=== PATIENT | female | born 1985 | race Caucasian/White ===

== ENCOUNTER 2018-06-04 09:47 | Emergency (ER) | payer OTHER ==
[~2018-06-04] VITALS: Ht 157.5 cm; Wt 72.0 kg
[~2018-06-04 09:47] MED LIST: CINN500C15 PO; GABA-532 PO; GING550C4 PO; GINK120C PO; KRIL500C PO; LISI-642 PO; MULT-190 PO
[2018-06-04 09:50] VITALS: BP 115/74
== END 2018-06-04 10:38 | disposition home or self-care (01) ==
LOC: ER 09:48
DX: Z02.89 Encounter for other administrative examinations (principal); Z88.0 Allergy status to penicillin; Z79.899 Other long term (current) drug therapy
CPT/HCPCS: 99281

== ENCOUNTER → 2019-09-24 | Outpatient (CLI) | payer BC ==
[2019-09-24 12:17] LABS: BASOPHILS # (AUTO) 0.1 X10'3 (0-0.2); BASOPHILS % (AUTO) 0.8 % (0-1); EOSINOPHILS # (AUTO) 0.1 X10'3 (0-0.9); EOSINOPHILS % (AUTO) 0.8 % (0-6); HEMOGLOBIN 12.1 g/dl (12.0-16.0); LYMPHOCYTES # (AUTO) 2.1 X10'3 (1.1-4.8); LYMPHOCYTES % (AUTO) 31.5 % (21-51); MEAN CORPUSCULAR HEMOGLOBIN 26.9 PG (27.0-31.0); MEAN CORPUSCULAR HGB CONC 32.7 g/dL (33.0-36.5); MEAN CORPUSCULAR VOLUME 82.2 FL (78-98); MEAN PLATELET VOLUME 7.5 FL (7.4-10.4); MONOCYTES # (AUTO) 0.7 X10'3 (0-0.9); MONOCYTES % (AUTO) 9.8 % (2-12); NEUTROPHILS # (AUTO) 3.8 X10'3 (1.8-7.7); NEUTROPHILS % (AUTO) 57.1 % (42-75); PLATELET COUNT 313 X10'3 (140-440); RED CELL DISTRIBUTION WIDTH 15.4 % (11.5-14.5); WHITE BLOOD COUNT 6.7 X10'3 (4.5-11.0)
[2019-09-24 12:43] LABS: % IRON SATURATION 19 % (11-46); IRON 88 UG/DL (49-151); TOTAL IRON BINDING CAPACITY 468 UG/DL (259-388)
[2019-09-24 12:45] LABS: CHOL/HDL RATIO 2.5 (0.00-4.99); CHOLESTEROL 215 MG/DL (0-200); FERRITIN 14 NG/ML (8-252); HDL CHOLESTEROL 85 MG/DL (35-60); LDL CHOLESTEROL 117 MG/DL (50-100); TRIGLYCERIDES 54 MG/DL (20-135)
== END | disposition home or self-care (01) ==
LOC: LAB 11:46
PROVIDERS: ATTEND Family Medicine
DX: Z00.00 Encounter for general adult medical examination without abnormal findings (principal)
CPT/HCPCS: 36415; 80061; 82728; 83540; 83550; 84439; 84443; 84480; 85025

== ENCOUNTER 2020-06-20 07:22 | Outpatient (CLI) | payer BC ==
[2020-06-20 08:20] LABS: CLARITY,URINE SLIGHTLY CLOUDY (Clear); COLOR,URINE YELLOW (Yellow); GLUCOSE, URINE NEGATIVE (Neg); KETONES,URINE NEGATIVE (Neg); LEUKOCYTE ESTERASE ,URINE NEGATIVE (Neg); NITRITES, URINE NEGATIVE (Neg); OCCULT BLOOD,URINE TRACE-INTACT (Neg); PROTEIN,URINE NEGATIVE (Neg); UROBILINOGEN,URINE 0.2 E.U/dL (0.2-1.0)
[2020-06-20 08:26] LABS: UA COLLECTION TYPE CLN CATCH MIDSTREAM
[2020-06-20 08:27] LABS: MUCUS STRANDS MODERATE /LPF (Neg); SQUAMOUS EPITHELIAL CELL,UR MODERATE /LPF (FEW)
[2020-06-20 08:28] LABS: BACTERIA,URINE 2+ /HPF (Neg); RBC,URINE 0-2 /HPF (0-2); WBC,URINE 0-4 /HPF (0-4)
[2020-06-20 08:31] LABS: BASOPHILS % (AUTO) 0.8 % (0-1); EOSINOPHILS # (AUTO) 0.4 X10'3 (0-0.9); EOSINOPHILS % (AUTO) 5.5 % (0-6); HEMOGLOBIN 11.5 g/dl (12.0-16.0); LYMPHOCYTES % (AUTO) 31.3 % (21-51); MEAN CORPUSCULAR HEMOGLOBIN 25.6 PG (27.0-31.0); MEAN CORPUSCULAR HGB CONC 31.9 g/dL (33.0-36.5); MEAN CORPUSCULAR VOLUME 80.2 FL (78-98); MONOCYTES # (AUTO) 0.6 X10'3 (0-0.9); MONOCYTES % (AUTO) 9.5 % (2-12); NEUTROPHILS # (AUTO) 3.4 X10'3 (1.8-7.7); NEUTROPHILS % (AUTO) 52.9 % (42-75); PLATELET COUNT 320 X10'3 (140-440); RED BLOOD COUNT 4.48 X10'6 (4.20-5.60); RED CELL DISTRIBUTION WIDTH 16.3 % (11.5-14.5); WHITE BLOOD COUNT 6.4 X10'3 (4.5-11.0)
[2020-06-20 08:43] LABS: ALANINE AMINOTRANSFERASE 15 U/L (12-78); ALBUMIN 2.8 G/DL (3.4-5.0); ALBUMIN/GLOBULIN RATIO 0.6 (1.1-1.5); ALKALINE PHOSPHATASE 53 IU/L (46-116); ANION GAP 11 (8-16); ASPARTATE AMINO TRANSFERASE 9 U/L (10-37); BILIRUBIN,TOTAL 0.2 MG/DL (0.1-1.0); BLOOD UREA NITROGEN 15 MG/DL (7-18); BUN/CREATININE RATIO 21.7 (6.6-38.0); CALCIUM 8.7 MG/DL (8.5-10.1); CHLORIDE 107 MMOL/L (99-107); CHOL/HDL RATIO 3.1 (0.00-4.99); CHOLESTEROL 206 MG/DL (0-200); CREATININE 0.69 MG/DL (0.40-0.90); GLUCOSE 94 MG/DL (70-104); HDL CHOLESTEROL 67 MG/DL (35-60); LDL CHOLESTEROL 132 MG/DL (50-100); POTASSIUM 3.6 MMOL/L (3.5-5.1); SODIUM 142 MMOL/L (135-145); TOTAL CARBON DIOXIDE 23.8 MMOL/L (24-32); TOTAL PROTEIN 7.4 G/DL (6.4-8.2); TRIGLYCERIDES 49 MG/DL (20-135); eGFR > 90 ML/MIN
== END 2020-06-20 23:59 | disposition home or self-care (01) ==
LOC: LAB 07:22
PROVIDERS: ATTEND Family Medicine
DX: Z00.00 Encounter for general adult medical examination without abnormal findings (principal)
CPT/HCPCS: 36415; 80053; 80061; 81001; 82306; 83036; 84439; 84443; 85025

== ENCOUNTER 2020-07-14 18:00 | Emergency (ER) | payer BC ==
[~2020-07-14] VITALS: Ht 157.5 cm; Wt 77.3 kg
[2020-07-14 18:23] VITALS: BP 124/89
[2020-07-14 19:36] LABS: URINE HCG NEGATIVE (NEG)
[2020-07-14 19:37] LABS: CLARITY,URINE SLIGHTLY CLOUDY (Clear); COLOR,URINE PINK (Yellow); GLUCOSE, URINE NEGATIVE (Neg); KETONES,URINE NEGATIVE (Neg); LEUKOCYTE ESTERASE ,URINE TRACE (Neg); NITRITES, URINE NEGATIVE (Neg); OCCULT BLOOD,URINE LARGE (Neg); PH,URINE 6.5 (4.8-8.0); PROTEIN,URINE 30 mg/dl (Neg); UA COLLECTION TYPE CLN CATCH MIDSTREAM; UROBILINOGEN,URINE 0.2 E.U/dL (0.2-1.0)
[2020-07-14 19:55] LABS: BACTERIA,URINE FEW /HPF (Neg); MUCUS STRANDS NONE SEEN /LPF (Neg); RBC,URINE 50-100 /HPF (0-2); SQUAMOUS EPITHELIAL CELL,UR FEW /LPF (FEW); WBC,URINE 0-4 /HPF (0-4)
[2020-07-14] MEDS ORDERED: CEPH-585 PO (20:10)
[2020-07-14] MEDS ORDERED: cephalexin 250mg capsule PO ONE (20:10)
[2020-07-15] MEDS ORDERED: HYDR-3965 PO (08:15)
== END 2020-07-14 20:24 | disposition home or self-care (01) ==
LOC: ER 18:01
DX: N39.0 Urinary tract infection, site not specified (principal); R31.9 Hematuria, unspecified; Z86.69 Personal history of other diseases of the nervous system and sense organs; Z88.0 Allergy status to penicillin; Z79.2 Long term (current) use of antibiotics; Z79.899 Other long term (current) drug therapy
CPT/HCPCS: 81001; 81025; 87088; 99283

== ENCOUNTER 2020-07-15 05:41 | Emergency (ER) | payer BC ==
[~2020-07-15] VITALS: Ht 157.5 cm; Wt 77.2 kg
[~2020-07-15 05:41] MED LIST changes: +CEPH-585 PO
[2020-07-15] MEDS ORDERED: HYDR-3965 PO (08:15)
[2020-07-15 08:29] VITALS: BP 116/76
[2020-07-15 08:30] LABS: CLARITY,URINE CLOUDY (Clear); COLOR,URINE RED (Yellow); GLUCOSE, URINE NEGATIVE (Neg); KETONES,URINE TRACE mg/dl (Neg); LEUKOCYTE ESTERASE ,URINE TRACE (Neg); NITRITES, URINE NEGATIVE (Neg); OCCULT BLOOD,URINE LARGE (Neg); PROTEIN,URINE >=300 mg/dl (Neg)
[2020-07-15 08:39] LABS: UA COLLECTION TYPE VOIDED
[2020-07-15 08:40] LABS: RBC,URINE TNTC /HPF (0-2); SQUAMOUS EPITHELIAL CELL,UR MANY /LPF (FEW)
[2020-07-15 08:41] LABS: CAL OXALATE CRYSTALS 4+ /HPF (NEGATIVE)
[2020-07-15 08:46] LABS: BACTERIA,URINE 2+ /HPF (Neg)
== END 2020-07-15 08:26 | disposition home or self-care (01) ==
LOC: EEVIPCON 05:42 → ER 05:42
DX: R31.9 Hematuria, unspecified (principal); N39.0 Urinary tract infection, site not specified; Z86.69 Personal history of other diseases of the nervous system and sense organs; Z88.0 Allergy status to penicillin; Z79.899 Other long term (current) drug therapy; Z98.890 Other specified postprocedural states
CPT/HCPCS: 74176; 81001; 99284

== ENCOUNTER 2021-03-15 08:54 | Outpatient (CLI) | payer BC ==
[2021-03-15 09:44] LABS: BASOPHILS % (AUTO) 0.5 % (0-1); EOSINOPHILS # (AUTO) 0.1 X10'3 (0-0.9); EOSINOPHILS % (AUTO) 1.4 % (0-6); HEMATOCRIT 33.3 % (35.0-45.0); HEMOGLOBIN 10.7 g/dl (12.0-16.0); LYMPHOCYTES # (AUTO) 1.9 X10'3 (1.1-4.8); LYMPHOCYTES % (AUTO) 30.3 % (21-51); MEAN CORPUSCULAR HEMOGLOBIN 25.1 PG (27.0-31.0); MEAN CORPUSCULAR VOLUME 78.5 FL (78-98); MEAN PLATELET VOLUME 7.8 FL (7.4-10.4); MONOCYTES # (AUTO) 0.6 X10'3 (0-0.9); MONOCYTES % (AUTO) 8.8 % (2-12); NEUTROPHILS # (AUTO) 3.8 X10'3 (1.8-7.7); PLATELET COUNT 355 X10'3 (140-440); RED BLOOD COUNT 4.24 X10'6 (4.20-5.60); RED CELL DISTRIBUTION WIDTH 17.3 % (11.5-14.5); WHITE BLOOD COUNT 6.4 X10'3 (4.5-11.0)
[2021-03-15 10:17] LABS: ALBUMIN 3.5 G/DL (3.4-5.0); ALBUMIN/GLOBULIN RATIO 0.9 (1.1-1.5); ALKALINE PHOSPHATASE 53 IU/L (46-116); ANION GAP 11 (8-16); ASPARTATE AMINO TRANSFERASE 18 U/L (10-37); BILIRUBIN,TOTAL 0.2 MG/DL (0.1-1.0); BLOOD UREA NITROGEN 10 MG/DL (7-18); BUN/CREATININE RATIO 14.5 (6.6-38.0); CALCIUM 8.6 MG/DL (8.5-10.1); CHLORIDE 108 MMOL/L (99-107); CHOL/HDL RATIO 2.8 (0.00-4.99); CHOLESTEROL 208 MG/DL (0-200); CREATININE 0.69 MG/DL (0.40-0.90); GLUCOSE 96 MG/DL (70-104); HDL CHOLESTEROL 73 MG/DL (35-60); LDL CHOLESTEROL 115 MG/DL (50-100); POTASSIUM 3.8 MMOL/L (3.5-5.1); SODIUM 140 MMOL/L (135-145); TOTAL CARBON DIOXIDE 20.8 MMOL/L (24-32); TOTAL PROTEIN 7.3 G/DL (6.4-8.2); TRIGLYCERIDES 43 MG/DL (20-135); eGFR > 90 ML/MIN
[2021-03-15 10:44] LABS: ALANINE AMINOTRANSFERASE 20 U/L (12-78)
[2021-03-15 11:54] LABS: HEMOGLOBIN A1C 6.2 % (4.5-6.2)
[2021-03-15 16:23] LABS: CLARITY,URINE SLIGHTLY CLOUDY (Clear); COLOR,URINE YELLOW (Yellow); GLUCOSE, URINE NEGATIVE (Neg); KETONES,URINE NEGATIVE (Neg); LEUKOCYTE ESTERASE ,URINE NEGATIVE (Neg); NITRITES, URINE NEGATIVE (Neg); OCCULT BLOOD,URINE SMALL (Neg); PH,URINE 5.5 (4.8-8.0); PROTEIN,URINE NEGATIVE (Neg); UROBILINOGEN,URINE 0.2 E.U/dL (0.2-1.0)
[2021-03-15 16:25] LABS: UA COLLECTION TYPE CLN CATCH MIDSTREAM
[2021-03-15 16:28] LABS: SQUAMOUS EPITHELIAL CELL,UR MANY /LPF (FEW)
[2021-03-15 16:31] LABS: BACTERIA,URINE 1+ /HPF (Neg); YEAST FEW /HPF (NEGATIVE)
[2021-03-15 16:32] LABS: RBC,URINE 0-2 /HPF (0-2); WBC,URINE 0-4 /HPF (0-4)
== END 2021-03-15 23:59 | disposition home or self-care (01) ==
LOC: LAB 08:54
PROVIDERS: ATTEND Family Medicine
DX: Z00.00 Encounter for general adult medical examination without abnormal findings (principal)
CPT/HCPCS: 36415; 80053; 80061; 81001; 82306; 83036; 84443; 85025

== ENCOUNTER 2021-03-27 08:04 | Emergency (ER) | payer BC ==
[~2021-03-27] VITALS: Ht 157.5 cm; Wt 77.3 kg
[2021-03-27] MEDS ORDERED: sulfamethoxazole/trimethoprim DS (800/160mg) tablet PO ONE (11:40)
[2021-03-27] MEDS ORDERED: ketorolac trometh inj. 60 MG/2 ML VIAL IM ONE (11:45)
[2021-03-27] MEDS ORDERED: MELO7.5T12 PO (11:47)
[2021-03-27 12:22] VITALS: BP 136/88
== END 2021-03-27 12:23 | disposition home or self-care (01) ==
LOC: EEVIPCON 08:05 → ER 08:05
DX: M77.12 Lateral epicondylitis, left elbow (principal); M25.522 Pain in left elbow; Z86.69 Personal history of other diseases of the nervous system and sense organs; Z88.0 Allergy status to penicillin; Z79.2 Long term (current) use of antibiotics; Z79.899 Other long term (current) drug therapy
CPT/HCPCS: 96372; 99283; J1885

== ENCOUNTER 2021-05-25 15:52 | Outpatient (CLI) | payer BC ==
[~2021-05-25 15:52] MED LIST changes: +MELO7.5T12 PO
[2021-05-25] MEDS ORDERED: GADOTERATE MEGLUMINE 7.5 MMOL/15 ML VIAL IV ONE (17:00)
== END 2021-05-25 23:59 | disposition home or self-care (01) ==
LOC: RAD 15:52
PROVIDERS: ATTEND Nurse Practitioner Family
DX: G40.009 Localization-related (focal) (partial) idiopathic epilepsy and epileptic syndromes with seizures of localized onset, not intractable, without status epilepticus (principal)
CPT/HCPCS: 70553; A9575

== ENCOUNTER 2021-06-06 15:56 | Outpatient (CLI) | payer BC | END 2021-06-06 23:59 | disposition home or self-care (01) | LOC: RAD 15:56 | PROVIDERS: ATTEND Nurse Practitioner Family | DX: R94.01 Abnormal electroencephalogram [EEG] (principal); G40.009 Localization-related (focal) (partial) idiopathic epilepsy and epileptic syndromes with seizures of localized onset, not intractable, without status epilepticus | CPT/HCPCS: 95816 ==

== ENCOUNTER 2021-09-05 11:23 | Emergency (ER) | payer BC ==
[~2021-09-05] VITALS: Ht 157.5 cm; Wt 86.4 kg
[~2021-09-05 11:23] MED LIST changes: -CEPH-585 PO
[2021-09-05 12:39] VITALS: BP 120/72
[2021-09-05] MEDS ORDERED: ibuprofen tablet 400 MG TABLET PO ONE (15:30)
== END 2021-09-05 15:46 | disposition home or self-care (01) ==
LOC: ER 11:23 → EEVIPCON 11:23 → ER 15:46
DX: M77.12 Lateral epicondylitis, left elbow (principal); Z88.0 Allergy status to penicillin; Z79.899 Other long term (current) drug therapy; X58.XXXA Exposure to other specified factors, initial encounter; Y93.89 Activity, other specified; Y92.89 Other specified places as the place of occurrence of the external cause; Y99.8 Other external cause status
CPT/HCPCS: 99282

== ENCOUNTER 2022-01-01 12:41 | Outpatient (CLI) | payer BC ==
[2022-01-01] MEDS ORDERED: GADOTERATE MEGLUMINE 7.5 MMOL/15 ML VIAL IV ONE (14:13)
== END 2022-01-01 23:59 | disposition home or self-care (01) ==
LOC: RAD 12:41
PROVIDERS: ATTEND Nurse Practitioner Family
DX: R90.82 White matter disease, unspecified (principal)
CPT/HCPCS: 72156; 72157; A9575

== ENCOUNTER 2022-01-23 08:55 | Day surgery (SDC) | payer BC ==
[~2022-01-23] VITALS: Ht 157.5 cm; Wt 90.2 kg
[2022-01-23 09:20] VITALS: BP 107/74
[2022-01-23] MEDS ORDERED: ESZO3TAB44 PO (09:42)
[2022-01-23] MEDS ORDERED: SERT-434 PO (09:42)
[2022-01-23] MEDS ORDERED: SUMA100T16 PO (09:42)
[2022-01-23] MEDS ORDERED: ZONI100C87 PO (09:42)
[2022-01-23] MEDS ORDERED: GABA300C PO (09:42)
[2022-01-23] MEDS ORDERED: fentaNYL/PF 50MCG/1 ML 2ML syringe ONE (10:30)
[2022-01-23 10:53] VITALS: BP 102/66
[2022-01-23 11:15] VITALS: BP 114/71
[2022-01-23 11:45] VITALS: BP 98/67
[2022-01-23 12:00] VITALS: BP 108/65
[2022-01-23 12:20] LABS: APPEARANCE,CSF CLEAR; CSF SUPERNATANT COLOR COLORLESS; CSF VOLUME 14.4 ML; TUBE# COUNTED 4
[2022-01-23 12:22] LABS: CSF RBC 80 /CU MM (0); CSF WBC CT 14 /CU MM (0-5); LYMPHOCYTES,CSF 96 % (40-80); MONOCYTES,CSF 4 % (15-45)
[2022-01-23 12:30] VITALS: BP 122/68
[2022-01-23 15:08] LABS: GLUCOSE,CSF 66 MG/DL (40-75)
[2022-01-23 15:09] LABS: TOTAL PROTEIN,CSF 40 MG/DL (15-45)
[2022-01-24 16:50] LABS: IMMUNOGLOBULIN G, QN, SERUM 926 mg/dL (586-1602)
[2022-01-28 17:36] LABS: VDRL, CSF Non Reactive (Non Rea:<1:1)
== END 2022-01-23 13:05 | disposition home or self-care (01) ==
LOC: SSTAY O 08:55
PROVIDERS: ATTEND Nurse Practitioner Family
DX: R90.82 White matter disease, unspecified (principal); Z88.0 Allergy status to penicillin; Z79.899 Other long term (current) drug therapy
CPT/HCPCS: 36415; 62328; 82040; 82042; 82164; 82784; 83873; 83916; 86592; 86617; 89051; J3010; J7030; 77003

== ENCOUNTER 2022-03-26 15:40 | Outpatient (CLI) | payer BC ==
[~2022-03-26 15:40] MED LIST changes: -CINN500C15 PO; +ESZO3TAB44 PO; -GABA-532 PO; +GABA300C PO; -GING550C4 PO; -GINK120C PO; -KRIL500C PO; -LISI-642 PO; -MELO7.5T12 PO; -MULT-190 PO; +SERT-434 PO; +SUMA100T16 PO; +ZONI100C87 PO
[2022-03-26] MEDS ORDERED: GADOTERATE MEGLUMINE 7.5 MMOL/15 ML VIAL IV ONE (17:13)
== END 2022-03-26 23:59 | disposition home or self-care (01) ==
LOC: RAD 15:40
PROVIDERS: ATTEND Nurse Practitioner Family
DX: R90.82 White matter disease, unspecified (principal); J34.89 Other specified disorders of nose and nasal sinuses
CPT/HCPCS: 70553; A9575

== ENCOUNTER 2022-11-11 09:45 | Outpatient (CLI) | payer BC ==
[2022-11-11 10:44] LABS: ALANINE AMINOTRANSFERASE 13 U/L (12-78); ASPARTATE AMINO TRANSFERASE 14 U/L (10-37); CHOL/HDL RATIO 3.6 (0.00-4.99); CHOLESTEROL 233 MG/DL (0-200); GLUCOSE 103 MG/DL (70-104); HDL CHOLESTEROL 64 MG/DL (35-60); LDL CHOLESTEROL 138 MG/DL (50-100); TRIGLYCERIDES 71 MG/DL (20-135)
[2022-11-11 10:50] LABS: HEMOGLOBIN A1C 6.2 % (4.5-6.2)
== END 2022-11-11 23:59 | disposition home or self-care (01) ==
LOC: LAB 09:45
PROVIDERS: ATTEND Family Medicine
DX: R73.09 Other abnormal glucose (principal); K76.89 Other specified diseases of liver; E78.2 Mixed hyperlipidemia
CPT/HCPCS: 36415; 80061; 82947; 83036; 84450; 84460

== ENCOUNTER 2024-01-06 07:47 | Outpatient (CLI) | payer BC ==
[2024-01-06 08:43] LABS: CHOL/HDL RATIO 2.3 (0.00-4.99); CHOLESTEROL 173 MG/DL (0-200); HDL CHOLESTEROL 74 MG/DL (35-60); LDL CHOLESTEROL 88 MG/DL (50-100); TRIGLYCERIDES 50 MG/DL (20-135)
[2024-01-06 09:04] LABS: HEMOGLOBIN A1C 5.9 % (4.5-6.2)
== END 2024-01-06 23:59 | disposition home or self-care (01) ==
LOC: LAB 07:47
PROVIDERS: ATTEND Family Medicine
DX: R73.09 Other abnormal glucose (principal); E78.2 Mixed hyperlipidemia
CPT/HCPCS: 36415; 80061; 83036

== ENCOUNTER 2024-04-07 11:50 | Emergency (ER) | payer BC ==
[~2024-04-07] VITALS: Ht 157.5 cm; Wt 88.0 kg
[2024-04-07 13:53] VITALS: BP 120/60; PULSE 70; RESP 16; TEMP 97.8; O2SAT 98
== END 2024-04-07 13:54 | disposition home or self-care (01) ==
LOC: ER 11:51
DX: S62.604A Fracture of unspecified phalanx of right ring finger, initial encounter for closed fracture (principal); Z88.0 Allergy status to penicillin; W19.XXXA Unspecified fall, initial encounter; Y93.01 Activity, walking, marching and hiking; Y92.89 Other specified places as the place of occurrence of the external cause; Y99.8 Other external cause status
CPT/HCPCS: 73140; 99283

== ENCOUNTER 2024-05-21 13:48 | Outpatient (CLI) | payer BC ==
[2024-05-21 14:47] LABS: BASOPHILS # (AUTO) 0.1 X10'3 (0-0.2); BASOPHILS % (AUTO) 1.1 % (0-1); EOSINOPHILS # (AUTO) 0.3 X10'3 (0-0.9); HEMATOCRIT 36.2 % (35.0-45.0); HEMOGLOBIN 11.3 g/dl (12.0-16.0); LYMPHOCYTES % (AUTO) 31.1 % (21-51); MEAN CORPUSCULAR HGB CONC 31.2 g/dL (33.0-36.5); MEAN CORPUSCULAR VOLUME 73.6 FL (78-98); MEAN PLATELET VOLUME 7.6 FL (7.4-10.4); MONOCYTES # (AUTO) 0.8 X10'3 (0-0.9); MONOCYTES % (AUTO) 12.4 % (2-12); NEUTROPHILS # (AUTO) 3.3 X10'3 (1.8-7.7); NEUTROPHILS % (AUTO) 50.4 % (42-75); PLATELET COUNT 414 X10'3 (140-440); RED BLOOD COUNT 4.92 X10'6 (4.20-5.60); RED CELL DISTRIBUTION WIDTH 17.5 % (11.5-14.5); WHITE BLOOD COUNT 6.5 X10'3 (4.5-11.0)
[2024-05-21 15:01] LABS: ALANINE AMINOTRANSFERASE 15 U/L (12-78); ALBUMIN 3.4 G/DL (3.4-5.0); ALBUMIN/GLOBULIN RATIO 0.8 (1.1-1.5); ALKALINE PHOSPHATASE 67 IU/L (46-116); ANION GAP 7 (8-16); ASPARTATE AMINO TRANSFERASE 9 U/L (10-37); BILIRUBIN,TOTAL 0.3 MG/DL (0.1-1.0); BLOOD UREA NITROGEN 13 MG/DL (7-18); CALCIUM 8.9 MG/DL (8.5-10.1); CHLORIDE 106 MMOL/L (99-107); CREATININE 0.65 MG/DL (0.40-0.90); GLUCOSE 84 MG/DL (70-104); POTASSIUM 3.9 MMOL/L (3.5-5.1); SODIUM 140 MMOL/L (135-145); TOTAL CARBON DIOXIDE 27.1 MMOL/L (24-32); TOTAL PROTEIN 7.8 G/DL (6.4-8.2); eGFR > 90 ML/MIN
== END 2024-05-21 23:59 | disposition home or self-care (01) ==
LOC: RAD 13:48
PROVIDERS: ATTEND Nurse Practitioner Family
DX: G40.009 Localization-related (focal) (partial) idiopathic epilepsy and epileptic syndromes with seizures of localized onset, not intractable, without status epilepticus (principal); G35 Multiple sclerosis; E55.9 Vitamin D deficiency, unspecified
CPT/HCPCS: 36415; 80053; 82306; 85025